=== PATIENT | female | born 1995 | race Caucasian/White ===

== ENCOUNTER 2017-04-11 09:23 | Emergency (ER) | payer MEDICAID ==
[~2017-04-11] VITALS: Ht 170.2 cm; Wt 113.8 kg
--- OUTSIDE RECORDS SUMMARY | ~2017-04-11 | XMS ---
Demographics + + + | Address | [address] | | | [address] | | | [place] [address] | + + + | Preferred Language | Unknown | + + + | Marital Status | Unknown | + + + | Yazidism Affiliation | Unknown | + + + | Race | Unknown | + + + | Ethnic Group | Unknown | + + + Author + + + | Author | [facility] | + + + | Organization | [facility] | + + + | Address | [address] | | | [place] [address] | + + + | Phone | | + + + Care Team Providers + + + + | Care Broomcorn Grader Name | Role | Phone | + + + + Unavailable | Unavailable | + + + + PROBLEMS +---------+ + + +--------+ + + | Type | Condition | ICD9-CM | [id number] | Onset | Condition | SNOMED | | | | Code | Code | Dates | Status | Code | +---------+ + + +--------+ + + | Problem | Asthma | | J45.909 | | Active | 869246160 | +---------+ + + +--------+ + + | Problem | Radiculopa | | M54.16 | | Active | 606509146 | | | thy, | | | | | | | | lumbar | | | | | | | | region | | | | | | +---------+ + + +--------+ + + | Problem | Other | G89.29 | | | Active | 98745956 | | | chronic | | | | | | | | pain | | | | | | +---------+ + + +--------+ + + | Problem | Closed | 824.8 | | | Active | 53743850 | | | fracture | | | | | | | | of ankle | | | | | | +---------+ + + +--------+ + + | Problem | Depression | | F41.8 | | Active | [id number] | | | with | | | | | | | | anxiety | | | | | | +---------+ + + +--------+ + + | Problem | Lower back | M54.5 | | | Active | 113460718 | | | pain | | | | | | +---------+ + + +--------+ + + | Problem | Muscle | | M62.830 | | Active | [id number] | | | spasm of | | | | | | | | back | | | | | | +---------+ + + +--------+ + + ALLERGIES Unknown Allergies SOCIAL HISTORY No smoking Hx information available PLAN OF CARE VITAL SIGNS MEDICATIONS Unknown Medications RESULTS No Results PROCEDURES No Known procedures IMMUNIZATIONS No Known Immunizations"
--- OUTSIDE RECORDS SUMMARY | ~2017-04-11 | XMS | Clinical Summary ---
Demographics + + + | Address | [address] | | | [place] [address] | + + + | Home Phone | | + + + | Preferred Language | Unknown | + + + | Marital Status | Single | + + + | Temple Affiliation | Unknown | + + + | Race | White | + + + | Ethnic Group | Not or | + + + Author + + + | Organization | Unknown | + + + | Address | Unknown | + + + | Phone | Unavailable | + + + Support +------+ +---------+ + | Name | Relationship | Address | Phone | +------+ +---------+ + ECON | Unknown | | +------+ +---------+ + Care Team Providers + +------+ + | Care Paint And Table Edger Name | Role | Phone | + +------+ + PP | Unavailable | + +------+ + Source Comments CHIRAG is fully live on both [facility] and [facility] Allergies Not on File Current Medications [...] | + + + + + | INFLUENZA VACCINE | | | | | (FLU SHOT) | 7 | | | + + + + + Results Not on filefrom Last 3 Months"
--- OUTSIDE RECORDS SUMMARY | ~2017-04-11 | XMS | Clinical Summary ---
Demographics + + + | Address | [address] | | | [place] [address] | + + + | Home Phone | | + + + | Preferred Language | Unknown | + + + | Marital Status | Single | + + + | Mandaeism Affiliation | Unknown | + + + [...] Team Providers + +------+ + | Care Tester Waste Disposal Leakage Name | Role | Phone | + +------+ + PP | Unavailable | + +------+ + Source Comments CHIRAG is fully live on both [facility] and [facility] InPatient.[facility] Allergies Not on File Current [...]
--- OUTSIDE RECORDS SUMMARY | ~2017-04-11 | XMS ---
Demographics + + + | Address | [address] | | | [address] | | | [place] [address] | + + + | Preferred Language | Unknown | + + + | Marital Status | Unknown | + + + | Adventist Affiliation | Unknown | + + + | Race | Unknown | + + + | Ethnic Group | Unknown | + + + Author + + + | Author | [facility] | + + + | Organization | [facility] | + + + | Address | [address] | | | [place] [address] | + + + | Phone | | + + + Care Team Providers + + + + | Care Aquatic Life Laborer Name | Role | Phone | + + + + Unavailable | Unavailable | + + + + PROBLEMS +---------+ + + +--------+ + + | Type | Condition | ICD9-CM | [id number] | Onset | Condition | SNOMED | | | | Code | Code | Dates | Status | Code | +---------+ + + +--------+ + + | Problem | Asthma | | J45.909 | | Active | [id number] | +---------+ + + +--------+ + + | Problem | Radiculopa | | M54.16 | | Active | [id number] | | | thy, | | | | | | | | lumbar | | | | | | | | region | | | | | | +---------+ + + +--------+ + + | Problem | Other | G89.29 | | | Active | 95838393 | | | chronic | | | | | | | | pain | | | | | | +---------+ + + +--------+ + + | Problem | Closed | 824.8 | | | Active | 42642121 | | | fracture | | | | | | | | of ankle | | | | | | +---------+ + + +--------+ + + | Problem | Depression | | F41.8 | | Active | 210864615 | | | with | | | | | | | | anxiety | | | | | | +---------+ + + +--------+ + + | Problem | Lower back | M54.5 | | | Active | [id number] | | | pain | | | | | | +---------+ + + +--------+ + + | Problem | Muscle | | M62.830 | | Active | 187590525 | | | spasm of | | | | | | | | back | | | | | | +---------+ + + +--------+ + + ALLERGIES Unknown Allergies SOCIAL HISTORY No smoking Hx information available PLAN OF CARE VITAL SIGNS MEDICATIONS + + + + + + + +--------+ | Medicati | Instruct | Dosage | Frequenc | Start | End Date | Duration | Status | | on | ions | | y | Date | | | | + + + + + + + +--------+ | Nordette | Orally | 1 tablet | 24h | 21 July, | | 28 days | Active | | (28) | Once a | | | 2016 | | | | | 0.15-30 | day | | | | | | | | MG-MCG | | | | | | | | + + + + + + + +--------+ RESULTS No Results PROCEDURES No Known procedures IMMUNIZATIONS No Known Immunizations"
[~2017-04-11 09:23] MED LIST: AMOXICILLIN875 MG PO; BACLOFEN10 MG PO; PRENATAL FORMU1 EAC3 PO; QVAR7.3 GM INH; SERTRALINE HCL100 MG PO; VENTOLIN HFA18 GM INH
== END 2017-04-11 10:58 | disposition home or self-care (01) ==
LOC: ED 09:23
DX: R10.84 Generalized abdominal pain (principal); Z87.891 Personal history of nicotine dependence; Z88.8 Allergy status to other drugs, medicaments and biological substances
CPT/HCPCS: 80053; 81001; 84703; 85025; 87088; 99283

== ENCOUNTER 2017-07-30 10:36 | Emergency (ER) | payer OTHER ==
[~2017-07-30] VITALS: Ht 170.2 cm; Wt 113.8 kg
== END 2017-07-30 12:31 | disposition home or self-care (01) ==
LOC: ED 10:36
DX: S93.401A Sprain of unspecified ligament of right ankle, initial encounter (principal); F17.200 Nicotine dependence, unspecified, uncomplicated; Z88.8 Allergy status to other drugs, medicaments and biological substances; X50.9XXA Other and unspecified overexertion or strenuous movements or postures, initial encounter
CPT/HCPCS: 73610; 99283

== ENCOUNTER 2017-09-03 10:12 | Emergency (ER) | payer OTHER ==
[~2017-09-03] VITALS: Ht 170.2 cm; Wt 113.4 kg
== END 2017-09-03 10:41 | disposition home or self-care (01) ==
LOC: ED 10:12
DX: J02.9 Acute pharyngitis, unspecified (principal); F17.200 Nicotine dependence, unspecified, uncomplicated

== ENCOUNTER 2018-05-28 19:43 | Emergency (ER) | payer OTHER ==
[~2018-05-28] VITALS: Ht 170.2 cm; Wt 104.3 kg
--- OUTSIDE RECORDS SUMMARY | ~2018-05-28 | XMS | Clinical Summary ---
Demographics + + + | Address | [address] | | | [place] [address] | + + + | Home Phone | | + + + | Preferred Language | Unknown | + + + | Marital Status | Single | + + + | Faith Affiliation | Unknown | + + + | Race | White | + + + | Ethnic Group | Not or | + + + Author + + + | Organization | Unknown | + + + | Address | Unknown | + + + | Phone | Unavailable | + + + Support + + +---------+ + | Name | Relationship | Address | Phone | + + +---------+ + | LILIAN RIBEIRO | ECON | Unknown | | + + +---------+ + Care Team Providers + +------+ + | Care House Superintendent Name | Role | Phone | + +------+ + PP | Unavailable | + +------+ + Source Comments [facility] Allergies Not on File Current Medications Not on file Active Problems Not on file Social History + +-------+ +--------+------+ | Tobacco Use | Types | Packs/Day | Years | Date | | | | | Used | | + +-------+ +--------+------+ | Never Assessed | | | | | + +-------+ +--------+------+ + + + | Sex Assigned at | Date Recorded | | | | + + + | Not on file | | + + + Plan of Treatment + + + + + | Health Maintenance | Due Date | Last Done | Comments | + + + + + | Influenza (Flu) | | | | | vaccination (#1) | 8 | | | + + + + + Results Not on filefrom Last 3 Months"
--- OUTSIDE RECORDS SUMMARY | ~2018-05-28 | XMS | Clinical Summary ---
Demographics + + + | Address | [address] | | | [place] [address] | + + + | Home Phone [...] Team Providers + +------+ + | Care Care Navigator Name | Role | Phone | + +------+ + PP | Unavailable | + +------+ + Source Comments EUGENIOJOSEF is fully live on both [facility] and [facility] Allergies Not on File Current [...]
[2018-05-28] MEDS ORDERED: NEXPLANON68 MG SUB-Q (19:58)
[2018-05-28] MEDS ORDERED: OMEPRAZOLE20 MG PO (21:45)
--- NOTE | 2018-05-29 19:49 | EKG ---
[facility] [address] [place], [place] [address] Signed Normal sinus rhythm Normal ECG No previous ECGs available Confirmed by CARMENZA DIETRICH DO ([id number]) on 05/29/2018 7:49:06 PM Electronically Signed By: CARMENZA DIETRICH DO 05/29/18 1949 PATIENT NAME: JOSE MILLER Electrocardiogram DATE OF : [birth year] PHYSICIAN: CARMENZA DIETRICH DO REPORT #: [id number] REPORT IS CONFIDENTIAL AND NOT TO BE RELEASED WITHOUT AUTHORIZATION
== END 2018-05-28 21:55 | disposition home or self-care (01) ==
LOC: ED 19:43
DX: R07.9 Chest pain, unspecified (principal); J45.909 Unspecified asthma, uncomplicated; F32.9 Major depressive disorder, single episode, unspecified; F41.9 Anxiety disorder, unspecified; F43.10 Post-traumatic stress disorder, unspecified; F90.9 Attention-deficit hyperactivity disorder, unspecified type; Z88.1 Allergy status to other antibiotic agents
CPT/HCPCS: 71045; 80053; 84484; 85025; 85379; 93005; 93010; 96374; 96375; 96376; 99285-25; J1170; J2405

== ENCOUNTER 2019-06-28 17:37 | Emergency (ER) | payer OTHER ==
[~2019-06-28] VITALS: Ht 170.2 cm; Wt 104.8 kg
[~2019-06-28 17:37] MED LIST changes: +AUGMENTIN 875-1 EACH PO; +CIPRODEX OTIC7.5 ML AS; +NEXPLANON68 MG SUB-Q; +OMEPRAZOLE20 MG PO
--- OUTSIDE RECORDS SUMMARY | 2019-06-28 17:40 | XMS ---
PreManage Notification: JOSE MILLER Security Body Masker Events No recent Security Events currently on file CRITERIA MET - [facility] - Has Care Guidelines CARE PROVIDERS NITESH HANDLEY Nurse Practitioner: Family 09/29/2018-Current PHONE: Unknown YURY GRIER Nurse Practitioner: Family Current PHONE: [phone] [facility] Date: 09/19/2018 Care Coordination: Mental health services provided by [employer].\T\nbsp; Please contact [employer] with mental health concerns.\T\nbsp; [place] [facility]: [phone]\T\ nbsp; [place]: [phone]. Care History Medical/Surgical 09/29/2018 [facility] - PATIENT HAS NOT ESTABLISHED CARE WITH A PCP AT [facility]. - PATIENT NO SHOWED TO APT TO ESTABLISH CARE WITH DR HOPE ON 08/03/18. - PLEASE REFER PATIENT TO THE WALK IN CLINIC -FOR NON EMERGENT MEDICAL CONCERNS. E.D. VISIT COUNT (12 MO.) [address] [facility] TOTAL 3 NOTE: Visits indicate total known visits. ED/UCC VISIT TRACKING (12 MO.) 06/28/2019 17:38 [facility] TYPE: Emergency COMPLAINT: - SHARP PAIN BACK TO FRONT 09/29/2018 07:21 [facility] TYPE: Emergency COMPLAINT: - LT EAR PAIN DIAGNOSES: - Nicotine dependence, unspecified, uncomplicated - Other skilled nursing (current) drug therapy - Unspecified otitis externa, left ear - Allergy status to other drugs, medicaments and biological sub - Otalgia, left ear - Otitis media, unspecified, left ear 09/18/2018 22:[address] [facility] [place] TYPE: Emergency COMPLAINT: - LEFT EAR PAIN/NON INJURY DIAGNOSES: - Other skilled nursing (current) drug therapy - Nicotine dependence, unspecified, uncomplicated - Allergy status to other drugs, medicaments and biological sub - Unspecified otitis externa, left ear - Otalgia, left ear INPATIENT VISIT TRACKING (12 MO.) No inpatient visits to display in this time frame [email or web address]
[2019-06-28] MEDS ORDERED: AVIANE1 EACH PO (17:55)
[2019-06-28] MEDS ORDERED: ESCITALOPRAM OX20 MG PO (17:56)
[2019-06-28] MEDS ORDERED: HYDROXYZINE HCL50 MG PO (17:56)
[2019-06-28] MEDS ORDERED: CETIRIZINE HCL10 MG PO (17:56)
[2019-06-28] MEDS ORDERED: VENTOLIN HFA18 GM INH (17:57)
[2019-06-28] MEDS ORDERED: FLOVENT HFA12 G1 INH (17:57)
[2019-06-28] MEDS ORDERED: NORCO 7.5-3251 EACH PO (19:49)
--- NOTE | 2019-06-29 16:13 | EKG ---
[facility] [address] [address] Signed Sinus bradycardia Otherwise normal ECG When compared with ECG of 28-MAY-2018 19:51, Vent. rate has decreased BY 23 BPM Nonspecific T wave abnormality no longer evident in Anterior leads Confirmed by CARMENZA DIETRICH DO ([id number]) on 06/29/2019 4:13:18 PM Electronically Signed By: CARMENZA DIETRICH DO 06/29/19 1613 PATIENT NAME: PAULJOSE AJIT Electrocardiogram DATE OF : [birth year] PHYSICIAN: CARMENZA DIETRICH DO REPORT #: [id number] REPORT IS CONFIDENTIAL AND NOT TO BE RELEASED WITHOUT AUTHORIZATION
== END 2019-06-28 20:00 | disposition home or self-care (01) ==
LOC: ED 17:37
DX: M62.830 Muscle spasm of back (principal); J45.909 Unspecified asthma, uncomplicated; F32.9 Major depressive disorder, single episode, unspecified; F41.9 Anxiety disorder, unspecified; F17.200 Nicotine dependence, unspecified, uncomplicated; Z88.0 Allergy status to penicillin; Z88.8 Allergy status to other drugs, medicaments and biological substances; Z79.899 Other long term (current) drug therapy; Z79.51 Long term (current) use of inhaled steroids
CPT/HCPCS: 71046; 93005; 93010; 99283-25; A9270